=== PATIENT | female | born 1960 | race Caucasian/White ===

== ENCOUNTER → 2024-03-17 07:56 | Outpatient (REF) | payer OTHER, SELFPAY | LOC: HWRAD 07:56 | PROVIDERS: ATTENDING PHYSICIAN Family Medicine; FAMILY PHYSICIAN Family Medicine | DX: R10.32 Left lower quadrant pain (principal) | CPT/HCPCS: 76705 ==

== ENCOUNTER 2024-05-30 11:06 | Emergency (ER) | payer OTHER, SELFPAY ==
[2024-05-30 11:11] VITALS: BP 125/67
--- NOTE | 2024-05-30 11:38 | ED.GENMED ---
History of Present Illness
General
Chief Complaint: Headache
Source: patient
Time Seen by Provider: 05/30/24 11:23
History of Present Illness
History of Present Illness:
64yoF with a history of PMR and hypothyroidism presenting with her sister for evaluation of a headache. Symptoms began about a week ago. She reports pain in her left temporal region which is described as a pressure. She is also having some scalp
sensitivity. She has been taking ibuprofen with improvement. She currently rates her pain as a 4-5/10 in severity. She is otherwise asymptomatic and denies any fevers, vomiting, dizziness, visual disturbance, weakness. Her ornamental metal erector apprentice told her to
always go to the hospital if she has temporal pain to be evaluated for temporal arteritis. She is not currently on medications for her PMR.
Phy Exam
General Physical Exam
General Presentation: well appearing and no apparent distress
General age: appears stated age
General Skin: warm and dry
General Habitus: normal
General Mental: alert
ENT Exam
Additional ENT: Mild tenderness to L temporal region
Eye Exam
Eye Exam: PERRL
Cardiovascular Exam
Cardiovascular Exam: regular rate/rhythm
Pulmonary Exam
Pulmonary Exam: no respiratory distress
Neurological Exam
Neurological Exam: alert
[place] Coma Scale
Eye Opening: Spontaneous
Verbal Response: Oriented
Motor Response: Obeys Commands
GCS Total Score: 15
Skin Exam
Skin Exam: normal color and warm/dry
Psychiatric Exam
Psychiatric Exam: normal mood/affect
Course
Orders/Labs/Results
Orders:
Orders
05/30/24 11:37
Ketorolac [Toradol] 15 mg IV NOW STA
05/30/24 11:47
CRP [C-Reactive Protein] Urgent
Complete Blood Count/With Diff Urgent
Comprehensive Metabolic Panel Urgent
ESR [Erythrocyte Sed Rate] Urgent
Abnormal Lab Results
05/30/24
11:47
RBC 4.19 L 10^6/uL
(4.20-5.40)
ESR 28 H mm/hour
(0-20)
Glucose 104 H mg/dl
(70-99)
05/30/24 11:47
05/30/24 11:47
Vital Signs
Initial and Last Documented VS:
Initial Vital Signs
Temp Pulse Resp BP Pulse Ox
98.2 F 88 16 125/67 98
05/30/24 11:11 05/30/24 11:11 05/30/24 11:11 05/30/24 11:11 05/30/24 11:11
Last Documented Vital Signs
Temp Pulse Resp BP Pulse Ox
98.2 F 68 18 116/65 100
05/30/24 11:11 05/30/24 13:42 05/30/24 13:42 05/30/24 13:42 05/30/24 13:42
MDM/Problems Addressed
Differential Diagnosis Includes:
64yoF here with L temporal pain x 1 week. No visual symptoms. Hx of PMR not on medications. She is afebrile and hemodynamically stable. She is well appearing in no distress. There is mild tenderness to the L temporal region on exam. Differential
diagnosis includes but is not limited to: temporal arteritis, TMJ, migraine
Initial ED plan: Check CBC, CMP, ESR/CRP. IV Toradol for pain.
*Critical Care Note
Total Time (30-74mins, 75-104mins- exclusive of procedures): Not Applicable
Update Note
Update Note:
ESR is mildly elevated at 28 but CRP is normal. Remainder of labs unremarkable including normal white count. Headache improved with Toradol. Overall low clinical suspicion for temporal arteritis. No indication for admission. She was advised to f/u
with her ornamental metal erector apprentice and return to the ER with any new visual symptoms. She was discharged in stable condition.
ED Attending Note
-
Portions of this chart may have been created with voice recognition software.� Occasional wrong word or��sound alike� substitutions may have occurred due to the inherent limitations of voice recognition software.
Discharge Plan
Departure
Patient Disposition: Home (Routine Discharge)
Date of Disposition: 05/30/24
Time of Disposition: 13:16
Patient with high blood pressure during this ER visit?: No
Discharge Problem:
Temporal pain
Instructions: Headache, Adult ED
Referrals:
Dileep Mosquera MD [Family Provider] -
Activity Restrictions/Additional Instructions:
Please follow-up with your ornamental metal erector apprentice. Return to the ER with any worsening symptoms or new vision symptoms.
Interventions
Interventions:
*General Assessment Last Done: 05/30/24 13:44
ED- Fall Risk Assessment Last Done: 05/30/24 12:30
*Nursing Disposition Last Done: 05/30/24 13:45
ED- Neurological Assessment Last Done: 05/30/24 12:30
Discharge Date and Time
Discharge Date/Time: 05/30/24 13:46
Print Language: KAZAKH
[2024-05-30] MEDS: TORADOL 15 MG IV (11:48)
[2024-05-30 12:08] LABS: % Basophils 1.1 % (0-2); % Eosinophils 0.8 % (0-6); % Immature Granulocytes 0.2 % (0-0.5); % Lymphocytes 25.9 % (20.5-51.1); Absolute Basophils 0.1 10^3/uL (0-0.2); Absolute Lymphocytes 1.4 10^3/uL (1.2-3.4); Absolute Monocytes 0.4 10^3/uL (0.1-0.6); Absolute Neutrophils 3.4 10^3/uL (1.4-6.5); Hematocrit 37.1 % (37.0-47.0); Hemoglobin 12.6 g/dL (12.0-16.0); Mean Corpuscular Hgb 30.1 pg (27.0-31.0); Mean Corpuscular Volume 88.5 fL (81.0-99.0); Mean Platelet Volume 9.4 fL (7.4-10.4); Nucleated Red Blood Cells % 0 %; Platelet Count 247 10^3/uL (130-400); Red Blood Cell Count 4.19 10^6/uL (4.20-5.40); Red Cell Dist. Width 12.3 % (11.5-14.5); White Blood Cell Count 5.3 10^3/uL (4.8-10.8)
[2024-05-30 12:21] LABS: ALT (SGPT) 22 U/L (0-35); AST (SGOT) 35 U/L (14-36); Albumin 4.3 g/dl (3.5-5.0); Alkaline Phosphatase 96 U/L (38-126); Blood Urea Nitrogen 13 mg/dl (7-17); Calcium 9.5 mg/dl (8.4-10.2); Carbon Dioxide 28 mmol/L (22-30); Chloride 104 mmol/L (98-107); Glucose 104 mg/dl (70-99); Potassium 4.5 mmol/L (3.5-5.1); Sodium 141 mmol/L (135-145); Total Bilirubin 0.6 mg/dl (0.2-1.3); Total Protein 7.2 g/dl (6.3-8.2); eGFR > 60.00
[2024-05-30 12:25] LABS: C-Reactive Protein < 5.00 mg/L (0.0-10.00)
[2024-05-30 12:42] LABS: Erythrocyte Sed Rate 28 mm/hour (0-20)
[2024-05-30 13:42] VITALS: BP 116/65
== END 2024-05-30 13:46 | disposition home or self-care (01) ==
LOC: EMR 11:06
PROVIDERS: Physician Assistant; EMERGENCY PHYSICIAN Emergency Medicine; FAMILY PHYSICIAN Family Medicine
DX: R51.9 Headache, unspecified (principal); E03.9 Hypothyroidism, unspecified
CPT/HCPCS: 99284; 96374; 80053; 85025; 85652; 86140

== ENCOUNTER → 2024-06-25 09:24 | Outpatient (REF) | payer MEDICARE, OTHER, SELFPAY | LOC: HWRAD 09:24 | PROVIDERS: ATTENDING PHYSICIAN Nurse Practitioner Family; FAMILY PHYSICIAN Family Medicine | DX: R10.32 Left lower quadrant pain (principal) | CPT/HCPCS: 74177; Q9967 ==

== ENCOUNTER 2025-03-21 15:22 | Emergency (ER) | payer MEDICARE, OTHER, SELFPAY ==
[2025-03-21 15:26] VITALS: BP 117/64
[2025-03-21 16:09] LABS: % Basophils 1.4 % (0-2); % Eosinophils 0.9 % (0-6); % Immature Granulocytes 0.5 % (0-0.5); % Lymphocytes 39.2 % (20.5-51.1); % Monocytes 9.4 % (1.7-9.3); % Neutrophils 48.6 % (42.2-75.2); Absolute Basophils 0.1 10^3/uL (0-0.2); Absolute Lymphocytes 1.7 10^3/uL (1.2-3.4); Absolute Monocytes 0.4 10^3/uL (0.1-0.6); Absolute Neutrophils 2.1 10^3/uL (1.4-6.5); Hematocrit 35.8 % (37.0-47.0); Hemoglobin 12.7 g/dL (12.0-16.0); Mean Corp Hgb Conc. 35.5 g/dL (33.0-37.0); Mean Corpuscular Hgb 32.2 pg (27.0-31.0); Mean Corpuscular Volume 90.6 fL (81.0-99.0); Nucleated Red Blood Cells % 0 %; Platelet Count 190 10^3/uL (130-400); Red Blood Cell Count 3.95 10^6/uL (4.20-5.40); Red Cell Dist. Width 12.3 % (11.5-14.5); White Blood Cell Count 4.2 10^3/uL (4.8-10.8)
[2025-03-21 16:36] LABS: ALT (SGPT) 34 U/L (0-35); AST (SGOT) 37 U/L (14-36); Albumin 4.3 g/dl (3.5-5.0); Alkaline Phosphatase 48 U/L (38-126); Blood Urea Nitrogen 21 mg/dl (7-17); Calcium 9.3 mg/dl (8.4-10.2); Carbon Dioxide 29 mmol/L (22-30); Chloride 108 mmol/L (98-107); Glucose 128 mg/dl (70-99); Lipase 266 U/L (23-300); Potassium 4.2 mmol/L (3.5-5.1); Sodium 141 mmol/L (135-145); Total Bilirubin 0.5 mg/dl (0.2-1.3); Total Protein 6.8 g/dl (6.3-8.2); eGFR > 60.00
[2025-03-21 16:46] LABS: Troponin I < 0.012 ng/ml
[2025-03-21 18:31] LABS: Urine Albumin Negative (Neg - Trace); Urine Bilirubin Negative (Negative); Urine Character Clear (Clear); Urine Color Yellow; Urine Glucose Negative (Negative); Urine Ketone Negative (Negative); Urine Leukocyte 2+ (Negative); Urine Nitrite Negative (Negative); Urine Occult Blood Negative (Negative); Urine Urobilinogen Negative (Neg - 1+); Urine pH 6.5 (5.0-9.0)
--- NOTE | 2025-03-21 18:31 | ED.GENMED ---
History of Present Illness
General
Chief Complaint: Abdominal Pain
Source: patient
Exam Limitations: none
Time Seen by Provider: 03/21/25 17:42
History of Present Illness
History of Present Illness:
64-year-old female presents complaining of sudden nonsevere left lower abdominal pain. This was then followed by nausea diaphoresis and lightheadedness. The pain has since slightly improved but still there. She no longer admits to any
lightheadedness or diaphoresis. There is no associated chest pain. No vomiting. No fever. She has a history of IBS and her gas pains feel similar to this but this was much more severe. No urinary symptoms. No other complaints at this time
Phy Exam
Physical Exam
Physical Exam:
General: well appearing female NAD
HEENT: NC/AT
Heart: RRr, no murmurs
Lungs: Clear no wheeze
Abdomen is soft tender to the left lower quadrant no guarding or rebound nondistended extremities: No cyanosis
Course
Orders/Labs/Results
Orders:
Orders
03/21/25 15:27
Electrocardiogram (*1) Urgent
Reason for Study: Syncope
03/21/25 15:28
EKG- Treatment ONCE
03/21/25 15:33
Complete Blood Count/With Diff Urgent
Comprehensive Metabolic Panel Urgent
Lipase Urgent
Troponin I Urgent
03/21/25 18:03
CT Abd/pelvis W Iv Cont Urgent
Comment:
Reason For Exam: llq pain
03/21/25 18:23
Urinalysis Reflex To Culture Urgent
Date Specimen was Collected: 03/21/25
Time Specimen was Collected: 18:22
Urine Microscopic Reflex Cult Urgent
Urine Culture Urgent
MICKEY Source: U
Specimen Description:
Obtained by: Random
Date Specimen was Collected: 03/21/25
Time Specimen was Collected: 18:22
03/21/25 20:17
Amoxicillin 875 mg/Clav 125 mg [Augmentin 875 mg/125 mg] 1 tablet PO NOW STA
Abnormal Lab Results
03/21/25 03/21/25
15:33 18:23
WBC 4.2 L 10^3/uL
(4.8-10.8)
RBC 3.95 L 10^6/uL
(4.20-5.40)
Hct 35.8 L %
(37.0-47.0)
MCH 32.2 H pg
(27.0-31.0)
Monocytes % 9.4 H %
(1.7-9.3)
Chloride 108 H mmol/L
(98-107)
BUN 21 H mg/dl
(7-17)
Glucose 128 H mg/dl
(70-99)
AST 37 H U/L
(14-36)
Leukocyte Esterase Rfl 2+ A
(Negative)
Urine Bacteria (Reflex) Few A
(Negative)
03/21/25 15:33
03/21/25 15:33
Vital Signs
Initial and Last Documented VS:
Initial Vital Signs
Temp Pulse Resp BP Pulse Ox
98.4 F 83 18 117/64 99
03/21/25 15:26 03/21/25 15:26 03/21/25 15:26 03/21/25 15:26 03/21/25 15:26
Last Documented Vital Signs
Temp Pulse Resp BP Pulse Ox
98.4 F 83 18 117/64 99
03/21/25 15:26 03/21/25 15:26 03/21/25 15:26 03/21/25 15:26 03/21/25 18:35
MDM/Problems Addressed
Differential Diagnosis Includes:
Sudden onset left lower abdominal pain. There was associated lightheadedness following this. This was likely a vasovagal episode. She denied chest pain. EKG shows sinus rhythm with a rate of 75 no ischemic changes. Do not suspect arrhythmia.
Question possible renal colic versus diverticulitis versus UTI constipation. Labs reviewed. CT pending
*Pulse Oximetry
SaO2: 99
Oxygen Mode of Delivery: Room air
Patient hypoxic: no
*Critical Care Note
Total Time (30-74mins, 75-104mins- exclusive of procedures): Not Applicable
Update Note
Update Note:
CT suggestive of acute proctocolitis. Given patient's continued mild discomfort we will treat with Augmentin. White count normal cardiac workup negative. No indication for admission
ED Attending Note
-
Portions of this chart may have been created with voice recognition software.� Occasional wrong word or��sound alike� substitutions may have occurred due to the inherent limitations of voice recognition software.
Discharge Plan
Departure
Patient Disposition: Home (Routine Discharge)
Date of Disposition: 03/21/25
Time of Disposition: 20:17
Patient with high blood pressure during this ER visit?: No
Discharge Problem:
Proctocolitis
Instructions: Clear Liquid Diet
Prescriptions:
New
amoxicillin-pot clavulanate 875-125 mg tablet
1 tab PO BID Qty: 14 0RF
Referrals:
UNKNOWN - PT DOES,NOT KNOW [Family Provider]
Activity Restrictions/Additional Instructions:
Drink plenty of clear liquids. Use Tylenol or ibuprofen if needed for pain. Use antibiotic as directed. Return if worse otherwise follow-up with your doctor
Interventions
Interventions:
*Risk Screen - Suicide Last Done: 03/21/25 15:24
*General Assessment Last Done: 03/21/25 15:24
*Neglect/Abuse Screening Last Done: 03/21/25 15:24
[id number] Assessment Last Done: 03/21/25 18:22
Discharge Date and Time
Print Language: [place]
[2025-03-21 19:09] LABS: Urine Bacteria Few (Negative); Urine Red Blood Cell 0-2 /HPF (0-2); Urine Squamous Cell 0-2 /LPF (Few)
[2025-03-21] MEDS: AUGMENTIN 875 MG/125 MG 1 TABLET PO (20:24)
== END 2025-03-21 20:37 | disposition home or self-care (01) ==
LOC: EMR 15:22
PROVIDERS: Physician Assistant; EMERGENCY PHYSICIAN Emergency Medicine
DX: K51.30 Ulcerative (chronic) rectosigmoiditis without complications (principal)
CPT/HCPCS: 99284; 74177; 80053; 81003; 81015; 83690; 84484; 85025; 87086; 93005; Q9967

== ENCOUNTER 2025-06-10 06:25 | Day surgery (SDC) | payer MEDICARE, OTHER, SELFPAY | END 2025-06-10 12:14 | disposition home or self-care (01) | LOC: GI 06:25 | PROVIDERS: ATTENDING PHYSICIAN Internal Medicine | DX: R10.32 Left lower quadrant pain (principal); R93.3 Abnormal findings on diagnostic imaging of other parts of digestive tract; K64.9 Unspecified hemorrhoids; R63.4 Abnormal weight loss; K44.9 Diaphragmatic hernia without obstruction or gangrene; R11.0 Nausea; D12.8 Benign neoplasm of rectum | CPT/HCPCS: 45380; 43235; 88305 ==

== ENCOUNTER → 2025-06-10 12:23 | Outpatient (REF) | payer MEDICARE, OTHER, SELFPAY ==
[2025-06-10 13:55] LABS: ALT (SGPT) 40 U/L (0-35); AST (SGOT) 42 U/L (14-36); Albumin 4.4 g/dl (3.5-5.0); Alkaline Phosphatase 55 U/L (38-126); Blood Urea Nitrogen 14 mg/dl (7-17); Calcium 9.3 mg/dl (8.4-10.2); Carbon Dioxide 29 mmol/L (22-30); Chloride 106 mmol/L (98-107); Glucose 87 mg/dl (70-99); Lipase 230 U/L (23-300); Potassium 4.9 mmol/L (3.5-5.1); Sodium 139 mmol/L (135-145); Total Protein 7.1 g/dl (6.3-8.2); eGFR > 60.00
[2025-06-10 13:56] LABS: Hematocrit 38.9 % (37.0-47.0); Hemoglobin 13.0 g/dL (12.0-16.0); Mean Corp Hgb Conc. 33.4 g/dL (33.0-37.0); Mean Corpuscular Volume 94.2 fL (81.0-99.0); Nucleated Red Blood Cells % 0 %; Platelet Count 240 10^3/uL (130-400); Red Cell Dist. Width 12.5 % (11.5-14.5)
== END ==
LOC: REG 12:23
PROVIDERS: ATTENDING PHYSICIAN Internal Medicine; FAMILY PHYSICIAN Family Medicine
DX: R11.0 Nausea (principal); R10.10 Upper abdominal pain, unspecified; K86.2 Cyst of pancreas
CPT/HCPCS: 36415; 80053; 83690; 85025

== ENCOUNTER → 2025-06-17 09:22 | Outpatient (REF) | payer MEDICARE, OTHER, SELFPAY | LOC: HWRAD 09:22 | PROVIDERS: ATTENDING PHYSICIAN Internal Medicine; FAMILY PHYSICIAN Family Medicine | DX: R11.0 Nausea (principal); R10.10 Upper abdominal pain, unspecified; K86.2 Cyst of pancreas | CPT/HCPCS: 76700 ==